=== PATIENT | male | born 1945 | race Caucasian/White ===

== ENCOUNTER 2019-08-03 05:13 | Day surgery (SDC) | payer OTHER, MEDICARE ==
[~2019-08-03] VITALS: Ht 182.9 cm; Wt 128.0 kg
[2019-08-03 05:32] LABS: BASOPHILS ABSOLUTE AUTO 0.04 K/mm3 (0.00-0.23); BASOPHILS PERCENT AUTO 0 % (0-2); EOSINOPHILS ABSOLUTE AUTO 0.21 K/mm3 (0.00-0.68); EOSINOPHILS PERCENT AUTO 2 % (0-6); Hematocrit 46.3 % (37.0-53.0); Hemoglobin 15.1 g/dL (13.5-17.5); IMMATURE GRAN ABSOLUTE AUTO 0.02 K/mm3 (0.00-0.10); IMMATURE GRAN PERCENT AUTO 0 % (0-1); LYMPHOCYTES ABSOLUTE AUTO 2.05 K/mm3 (0.84-5.20); LYMPHOCYTES PERCENT AUTO 22 % (21-46); MONOCYTES ABSOLUTE AUTO 0.94 K/mm3 (0.16-1.47); MONOCYTES PERCENT AUTO 10 % (4-13); Mean Corpuscular HGB 27.3 pg (26.0-34.0); Mean Corpuscular HGB Conc 32.6 g/dL (31.5-36.5); Mean Corpuscular Volume 84 fL (80-100); Mean Platelet Volume 9.9 fL (9.1-12.4); NEUTROPHILS ABSOLUTE AUTO 5.99 K/mm3 (1.96-9.15); NEUTROPHILS PERCENT AUTO 65 % (41-73); Platelet Count 235 K/mm3 (150-400); RDW Coefficient Variation 13.9 % (11.7-14.2); RDW Standard Deviation 42.5 fL (35.1-46.3); Red Blood Cell Count 5.54 M/mm3 (4.30-5.90); White Blood Cell Count 9.25 K/mm3 (4.00-11.30)
[2019-08-03 05:55] LABS: Albumin, Blood 3.2 g/dL (3.4-5.0); Albumin/Globulin Ratio 0.9 (0.8-1.8); Bilirubin, Total 0.4 mg/dL (0.1-1.0); Bun/Creatinine Ratio 15.9 (12.0-20.0); Calcium, Blood 8.9 mg/dL (8.5-10.1); Creatinine, Blood 1.95 mg/dL (0.60-1.20); Globulin, Blood 3.7 g/dL (2.2-4.0); Potassium, Blood 3.5 mmol/L (3.5-5.5); Total Protein, Blood 6.9 g/dL (6.4-8.2); Troponin I 0.241 ng/mL (0.000-0.040)
[2019-08-03] MEDS ORDERED: LEVSOD125 PO (07:04)
[2019-08-03] MEDS ORDERED: LOSA50 PO (07:04)
[2019-08-03] MEDS ORDERED: CHLO25B PO (07:04)
[2019-08-03] MEDS ORDERED: Zantac150 MG PO (07:05)
[2019-08-03] MEDS ORDERED: ATEN100 PO (07:05)
[2019-08-03] MEDS ORDERED: Prazosin HCl2 MG PO (07:05)
--- NOTE | 2019-08-03 12:31 | NUR ---
admit note PT REPORT RECEIVED FROM LENA RN, ER. PT ARRIVED TO PCU VIA GURNEY ACCOMPANIED BY RN. PT AWAKE AND ALERT. PT DENIES CHEST PAIN/PRESSURE UPON ARRIVAL. PT ABLE TO TRANSFER SELF WITH SBA. NO DIZZINESS OR WEAKNESS NOTED. TELE MONITOR EXPLAINED AND APPLIED TO CHEST. EKG PATCHES MARKED AND REMOVED FROM CHEST WALL. VSS. H/L. SR WITH FIRST APPLEE HB ON MONITOR. CARDIOLOGY CONSULT CALLED PRIOR TO ARRIVAL TO UNIT. CONTINUE POT.
[2019-08-03 14:01] LABS: Source, Urine Voided
[2019-08-03 14:05] LABS: Bilirubin, Urine Neg (Neg); Blood, Urine 2+ (Neg); Glucose Qualitative, Urine Neg (Neg); Ketones, Urine Neg (Neg); Leukocyte Esterase, Urine Neg (Neg); Nitrite, Urine Neg (Neg); Protein, Urine 1+ (Neg); Specific Gravity, Urine 1.025 (1.003-1.022); Urobilinogen, Urine NORM (Normal)
[2019-08-03 14:27] LABS: Appearance, Urine Hazy (Clear); Color, Urine Yellow (P-Yellow)
[2019-08-03 14:29] LABS: Bacteria Few /hpf; Red Blood Cells, Urine 0-2 /hpf (0-2); Squamous Epithelial Cells Few /hpf (Few); Uric Acid Crystals Many /hpf; White Blood Cells, Urine 0-2 /hpf (0-5)
[2019-08-03 15:13] LABS: International Normalized Ratio 1.17; Prothrombin Time Results 12.2 Sec (9.7-11.5)
--- NOTE | 2019-08-03 15:26 | NUR ---
Echocardiogram completed.
--- NOTE | 2019-08-03 17:08 | NUR ---
NOTE PT AWAKE AND ALERT. FOUND UNDRESSING AND TAKING THE TELE MONITOR APART. REORIENTED TO WHERE HE IS AND WHY HE IS HERE. VSS. NO BP RIGHT UE, PER BATTERY INSPECTOR, DUE TO A SUBCLAVIAN STENOSIS. SR WITH FIRST DEGREE HB. VSS. DENIED CHEST PAIN OR CHEST PRESSURE. H/L. RA. CONTINUE POT.
--- NOTE | 2019-08-03 17:59 | NUR ---
[place] [facility] FAXED OVER PT CURRENT MEDICATIONS LIST. IT WOULD APPEAR THAT PT HAS NOT FILLED HIS ROUTINE MEDICAITONS FOR SEVERAL MONTHS. CONTINUE POT.
--- NOTE | 2019-08-03 20:31 | NUR ---
PATIENT REPORTS BLOOD IN URINE NOT WITNESSED. STATES THAT HE HAD A UTI ONE MONTH AGO AND HAD BOOD IN URINE AT THAT TIME.
[2019-08-04 02:49] LABS: Source, Urine Clean Catch
[2019-08-04 02:51] LABS: Appearance, Urine Hazy (Clear); Bilirubin, Urine Neg (Neg); Blood, Urine 2+ (Neg); Color, Urine Yellow (P-Yellow); Glucose Qualitative, Urine Neg (Neg); Ketones, Urine Neg (Neg); Leukocyte Esterase, Urine Neg (Neg); Nitrite, Urine Neg (Neg); Protein, Urine 1+ (Neg); Urobilinogen, Urine NORM (Normal)
[2019-08-04 02:59] LABS: Red Blood Cells, Urine 0-2 /hpf (0-2); White Blood Cells, Urine 0-2 /hpf (0-5)
[2019-08-04 03:00] LABS: Bacteria Many /hpf; Squamous Epithelial Cells Not Seen /hpf (Few)
[2019-08-04 04:04] LABS: Hematocrit 44.7 % (37.0-53.0); Hemoglobin 14.5 g/dL (13.5-17.5); Mean Corpuscular HGB 27.4 pg (26.0-34.0); Mean Corpuscular HGB Conc 32.4 g/dL (31.5-36.5); Mean Corpuscular Volume 84 fL (80-100); Platelet Count 195 K/mm3 (150-400); RDW Coefficient Variation 13.9 % (11.7-14.2); RDW Standard Deviation 43.2 fL (35.1-46.3); White Blood Cell Count 7.97 K/mm3 (4.00-11.30)
[2019-08-04 04:27] LABS: Bun/Creatinine Ratio 17.6 (12.0-20.0); Calcium, Blood 8.6 mg/dL (8.5-10.1); Creatinine, Blood 1.48 mg/dL (0.60-1.20); Potassium, Blood 3.4 mmol/L (3.5-5.5)
[2019-08-04 04:35] LABS: Thyroid Stimulating Hormone 4.5 uIU/mL (0.360-4.800)
--- NOTE | 2019-08-04 05:47 | NUR ---
PATIENT HAS HIS DAUGHTER ANSWER A LOT OF QUESTIONS FOR HIM, STATING HE IS NOT SURE. PATIENT ABLE TO ANSWER ORIENTATION QUESTIONS, BUT BECOMES CONFUSED EASILY. PATIENT DENIES ANY PAIN. PATIENT SLEEPS HEAVILY AND STARTLES EASILY. DAUGHTER STATES HE HAS NIGHTTERRORS AND HAS BEEN VIOLENT IN THE PAST. PATIENT APPROPRIATE THROUGH THE NIGHT. PATIENT SHOWS NO SIGNS OF PAIN. SBP CONTINUES TO BE ELEVATED 160-170'S. PATIENT NPO AT MIDNIGHT.
--- NOTE | 2019-08-04 15:00 | NUR ---
PT TAKEN TO LENS POLISHER HAND FOR ANGIOGRAM. WILL AWAIT RETURN.
--- NOTE | 2019-08-04 16:16 | NUR ---
PT RETURNED FROM FREELANCE MAKEUP ARTIST. VS STABLE. PT AELRT AND ORIENTED. RIGHT RADIAL SITE HAS TR BAND IN PLACE WITH 12CC OF AIR. NO SIGNS OF BLEEDIG OR HEMATOMA NOTED. PT EDUCATED ON RIGHT ARM RESTRICTIONS. WILL CONTINUE TO MONITOR CLOSELY.
--- NOTE | 2019-08-04 18:40 | NUR ---
SHIFT SUMMARY PT ALERT AND ORIENTED. BP ELEVATED SINCE RETURN FROM MUSIC WORKER. ONE TIME DOSE OF NORVASC GIVEN. DR. NATHAN IN THIS EVENING WITH NEW ORDERS FOR MEDICATION TO TREAT BP. RIGHT RADIAL SITE FREE FROM ANY BLEEDING OR HEMATOMA NOTED. PT'S DAUGHTER CALLED AND UPDATED. WILL CONTINUE TO MONITOR AND REPORT TO ONCOMING RN. CALL LIGHT IN REACH.
--- NOTE | 2019-08-04 21:23 | NUR ---
CALLED DR. MONROE ABOUT ELEVATED BP AND NOTIFIED HIM PATIENT HAD ANGIO AND STILL HAS TR BAND ON. DOCTOR ORDERED FOR IV LABATELOL 10MG Q6H PRN FOR BP> 180/110. NO FURTHER ORDERS.
--- NOTE | 2019-08-04 23:01 | NUR ---
PATIENT FELT URGE TO URINATE BUT UNABLE, BLADDER SCANNED FOR 320. PATIENT WAS ABLE TO URINATE AT THE BEGINNING OF SHIFT. CALLED DR. MONROE WHO ORDERED TO SCAN IN 2HR IF STILL UNABLE TO VOID IF URINE IS GREATER THAN 500CC STRAIGHT CATH X1. NO FURTHER ORDERS AT THIS TIME.
--- NOTE | 2019-08-05 05:51 | NUR ---
PATIENT HAS BEEN SLEEPING IN BETWEEN CARE. PATIENT STARTLES EASILY. PATIENT DENIES ANY PAIN THROUGH NIGHT. SBP NOW 159.
--- NOTE | 2019-08-05 05:54 | NUR ---
CALLED DR. PERALTA TO CLARIFY LABATELOL ORDER PARAMETERS OF 180/110 DUE TO PATIENT CURRENT SBP OF 194. DOCTOR CHANGED PARAMETERS FOR SBP>160.
[2019-08-05 09:01] LABS: Anion Gap 4 mmol/L (6-16); Blood Urea Nitrogen 17 mg/dL (8-24); Bun/Creatinine Ratio 13.9 (12.0-20.0); CO2, Blood 27 mmol/L (21-32); Calcium, Blood 8.5 mg/dL (8.5-10.1); Chloride, Blood 107 mmol/L (98-108); Creatinine, Blood 1.22 mg/dL (0.60-1.20); Glomerular Filtration Rate >60 (60-); Glucose, Blood 138 mg/dL (70-99); Potassium, Blood 3.8 mmol/L (3.5-5.5); Sodium, Blood 138 mmol/L (136-145)
--- NOTE | 2019-08-05 13:58 | NUR ---
CALLED TO CLARIFY DISCHARGE PLANS WITH CINTHYA ALLAN TO DISCHARGE FROM CARDIOLOGY STAND POINT, WITH FOLLOW UP IN OFFICE TO BE REFFERED FOR FURTHER TREATMENT. NOTIFIED DR SHAH. WILL CONTINUE TO MONITOR.
[2019-08-05] MEDS ORDERED: ASPI81CH PO (15:16)
[2019-08-05] MEDS ORDERED: Norvasc10 MG PO (15:16)
[2019-08-05] MEDS ORDERED: ATOR40TA PO (15:18)
[2019-08-05] MEDS ORDERED: CARV25 PO (15:20)
--- NOTE | 2019-08-05 16:07 | NUR ---
DISCHARGE SUMMARY PT A&Ox3, FORGETFUL AT TIMES. PT RESTING IN BED DURING SHIFT, UP TO CHAIR FOR MEALS AND BATHROOM WITH SBA WITH CANE. PT DENIES CHEST PAIN, NUMB/TING, DIZZINESS, SOB, PAIN AND NAUSEA T/O SHIFT. PT DENIES CHEST PAIN/PRESSURE AFTER AMBULATION WITH PT. SPO2 >92% ON RA. RIGHT RADIAL SITE CONTINES TO SHOW NO S/SX OF BLEEDING, BRUISING OR SWELLING. PT ENCOURAGED AND EDUCATED NO TO USE RIGHT ARM. ELEVATED BP THIS AM, TRENDING DOWN AFTER SCHEDULED MEDICATIONS. OTHER VSS. TELE SR WITH 1ST DEGREE AV BLOCK. EDUCATED PT AND DAUGHTER ON DISCHARGE INSTRUCTIONS, MEDICATIONS, FOLLOW UP APPOINTMENTS, AND REFERRAL FOR CARDIOTHORACTIC SURGEON. MEDICATIONS FAXED TO [facility] IN [facility] PER PT REQUEST. DAUGHTER PLANS TO CALL ON WEDNESDAY FOR FOLLOW UP APPOINTMENTS. PT LEFT ROOM VIA WHEELCHAIR AT 1600.
== END 2019-08-05 16:00 | disposition home or self-care (01) ==
LOC: ER 05:13 → ERHOLD 09:07 → PCU 09:07 → ERHOLD 12:10 → ORSCMMR 12:13 → MHTC 12:13 → ORSCMMR 12:14 → PCU 08-05 16:00 → ORSCMMR 08-05 16:00
PROVIDERS: Emergency Medicine; Internal Medicine; Internal Medicine Cardiovascular Disease
PROC: 4A023N7 Measurement of Cardiac Sampling and Pressure, Left Heart, Percutaneous Approach (ICD-10-PCS; principal; 2019-08-04)
PROC: B2111ZZ Fluoroscopy of Multiple Coronary Arteries using Low Osmolar Contrast (ICD-10-PCS; principal; 2019-08-04)
DX: I21.4 Non-ST elevation (NSTEMI) myocardial infarction (principal); I10 Essential (primary) hypertension; J44.9 Chronic obstructive pulmonary disease, unspecified; E03.9 Hypothyroidism, unspecified; E66.9 Obesity, unspecified; G47.33 Obstructive sleep apnea (adult) (pediatric); I34.0 Nonrheumatic mitral (valve) insufficiency; I25.10 Atherosclerotic heart disease of native coronary artery without angina pectoris; G31.84 Mild cognitive impairment of uncertain or unknown etiology; N17.9 Acute kidney failure, unspecified; I48.0 Paroxysmal atrial fibrillation; Z68.38 Body mass index [BMI] 38.0-38.9, adult; Z79.899 Other long term (current) drug therapy; Z74.09 Other reduced mobility; Z87.891 Personal history of nicotine dependence
CPT/HCPCS: 36415; 36416; 71045; 80048; 80053; 81001; 84443; 84484; 85025; 85027; 85610; 85730; 87086; 93005; 93010; 93306; 93454; 96374; 97116; 97162; 99152; 99153; 99285-25; C1769; C1887; C1894; J1644; J2250; J3010; J3480; J7030; Q9967

== ENCOUNTER 2020-03-21 10:37 | Emergency (ER) | payer OTHER ==
[~2020-03-21] VITALS: Ht 182.9 cm; Wt 127.0 kg
[~2020-03-21 10:37] MED LIST: ASPI81CH PO; ATEN100 PO; ATOR40TA PO; CARV25 PO; CHLO25B PO; LEVSOD125 PO; LOSA50 PO; Norvasc10 MG PO; Prazosin HCl2 MG PO; Zantac150 MG PO
[2020-03-21] MEDS ORDERED: Norco 5-325 Ta1 EACH PO (12:43)
[2020-03-21] MEDS ORDERED: CYCL10 PO (12:43)
== END 2020-03-21 13:06 | disposition home or self-care (01) ==
LOC: ER 10:37
DX: M54.42 Lumbago with sciatica, left side (principal); I12.9 Hypertensive chronic kidney disease with stage 1 through stage 4 chronic kidney disease, or unspecified chronic kidney disease; N18.9 Chronic kidney disease, unspecified; J44.9 Chronic obstructive pulmonary disease, unspecified; E03.9 Hypothyroidism, unspecified; Z88.1 Allergy status to other antibiotic agents; Z88.8 Allergy status to other drugs, medicaments and biological substances; Z79.899 Other long term (current) drug therapy; Z79.82 Long term (current) use of aspirin
CPT/HCPCS: 72100; 99283-25; A9270-GY

== ENCOUNTER 2023-08-02 17:36 | Inpatient (IN) | payer MEDICARE, OTHER ==
[~2023-08-02] VITALS: Ht 188 cm; Wt 124.0 kg
[~2023-08-02 17:36] MED LIST changes: +ALBU90OI INH; +CYCL10 PO; +Norco 5-325 Ta1 EACH PO
[2023-08-02 19:41] LABS: BASOPHILS ABSOLUTE AUTO 0.02 K/mm3 (0.00-0.23); BASOPHILS PERCENT AUTO 0 % (0-2); EOSINOPHILS PERCENT AUTO 0 % (0-6); Hematocrit 46.1 % (37.0-53.0); Hemoglobin 15.2 g/dL (13.5-17.5); IMMATURE GRAN ABSOLUTE AUTO 0.01 K/mm3 (0.00-0.10); IMMATURE GRAN PERCENT AUTO 0 % (0-1); LYMPHOCYTES ABSOLUTE AUTO 0.84 K/mm3 (0.84-5.20); LYMPHOCYTES PERCENT AUTO 12 % (21-46); MONOCYTES ABSOLUTE AUTO 0.91 K/mm3 (0.16-1.47); MONOCYTES PERCENT AUTO 13 % (4-13); Mean Corpuscular Volume 82 fL (80-100); Mean Platelet Volume 9.9 fL (9.1-12.4); NEUTROPHILS ABSOLUTE AUTO 5.31 K/mm3 (1.96-9.15); NEUTROPHILS PERCENT AUTO 75 % (41-73); Platelet Count 146 K/mm3 (150-400); RDW Coefficient Variation 14.7 % (11.7-14.2); RDW Standard Deviation 43.6 fL (35.1-46.3); Red Blood Cell Count 5.64 M/mm3 (4.30-5.90); White Blood Cell Count 7.09 K/mm3 (4.00-11.30)
[2023-08-02 19:46] LABS: Source, Urine Straight Cath
[2023-08-02 19:51] LABS: Appearance, Urine Cloudy (Clear); Bilirubin, Urine Neg (Neg); Blood, Urine 5+ (Neg); Color, Urine Yellow (P-Yellow); Glucose Qualitative, Urine Neg (Neg); Ketones, Urine 2+ (Neg); Leukocyte Esterase, Urine Neg (Neg); Nitrite, Urine Neg (Neg); Protein, Urine 3+ (Neg); Specific Gravity, Urine 1.025 (1.003-1.022); Urobilinogen, Urine NORM (Normal)
[2023-08-02 20:03] LABS: Albumin, Blood 3.4 g/dL (3.4-5.0); Albumin/Globulin Ratio 0.8 (0.8-1.8); Bilirubin, Total 0.8 mg/dL (0.1-1.0); Bun/Creatinine Ratio 14.2 (12.0-20.0); Calcium, Blood 8.8 mg/dL (8.5-10.1); Creatinine, Blood 1.2 mg/dL (0.60-1.20); Magnesium, Blood 2.3 mg/dL (1.6-2.4); Potassium, Blood 5.1 mmol/L (3.5-5.5); Total Protein, Blood 7.4 g/dL (6.4-8.2)
[2023-08-02 20:16] LABS: Amorphous Mod (0-Heavy); Bacteria Few /hpf; Red Blood Cells, Urine 0-2 /hpf (0-2); Squamous Epithelial Cells Not Seen /hpf (Few); White Blood Cells, Urine 0-2 /hpf (0-5)
[2023-08-02 20:30] LABS: Influenza A, PCR NEGATIVE (NEGATIVE); Influenza B, PCR NEGATIVE (NEGATIVE); Resp Syncytial Virus, PCR NEGATIVE (NEGATIVE)
[2023-08-02 20:32] LABS: SARS-Cov-2 (COVID-19) PCR, MMC POSITIVE (NEGATIVE)
[2023-08-02 20:41] LABS: International Normalized Ratio 1.17; Prothrombin Time Results 12.2 Sec (9.7-11.5)
[2023-08-02 23:27] LABS: Base Excess Venous 1.4 mmol/L; Bicarbonate Venous 24.7 mmol/L (24.0-30.0); PCO2 Venous 53.7 mmHg (38-42); pH Blood Venous 7.32 (7.34-7.37)
[2023-08-03 06:26] LABS: Base Excess Venous 1.8 mmol/L; Bicarbonate Venous 24.9 mmol/L (24.0-30.0); PCO2 Venous 54.7 mmHg (38-42); pH Blood Venous 7.32 (7.34-7.37)
[2023-08-03 06:31] LABS: BASOPHILS ABSOLUTE AUTO 0.01 K/mm3 (0.00-0.23); BASOPHILS PERCENT AUTO 0 % (0-2); EOSINOPHILS PERCENT AUTO 0 % (0-6); Hematocrit 43.7 % (37.0-53.0); Hemoglobin 14.4 g/dL (13.5-17.5); IMMATURE GRAN ABSOLUTE AUTO 0.01 K/mm3 (0.00-0.10); IMMATURE GRAN PERCENT AUTO 0 % (0-1); LYMPHOCYTES PERCENT AUTO 12 % (21-46); MONOCYTES ABSOLUTE AUTO 0.17 K/mm3 (0.16-1.47); MONOCYTES PERCENT AUTO 4 % (4-13); Mean Corpuscular HGB 26.9 pg (26.0-34.0); Mean Corpuscular Volume 82 fL (80-100); Mean Platelet Volume 10.2 fL (9.1-12.4); NEUTROPHILS ABSOLUTE AUTO 4.11 K/mm3 (1.96-9.15); NEUTROPHILS PERCENT AUTO 84 % (41-73); Platelet Count 134 K/mm3 (150-400); RDW Coefficient Variation 14.7 % (11.7-14.2); RDW Standard Deviation 43.1 fL (35.1-46.3); Red Blood Cell Count 5.36 M/mm3 (4.30-5.90)
[2023-08-03 06:47] LABS: Albumin, Blood 2.9 g/dL (3.4-5.0); Albumin/Globulin Ratio 0.8 (0.8-1.8); Bilirubin, Total 0.4 mg/dL (0.1-1.0); Bun/Creatinine Ratio 15.4 (12.0-20.0); Calcium, Blood 8.2 mg/dL (8.5-10.1); Creatinine, Blood 1.17 mg/dL (0.60-1.20); Globulin, Blood 3.6 g/dL (2.2-4.0); Potassium, Blood 3.7 mmol/L (3.5-5.5); Total Protein, Blood 6.5 g/dL (6.4-8.2)
[2023-08-03 10:56] VITALS: BP 185/84
[2023-08-03 14:36] VITALS: BP 163/93
[2023-08-03] MEDS ORDERED: TAMS.4ER PO (16:06)
[2023-08-03] MEDS ORDERED: FINA5 PO (16:07)
[2023-08-03] MEDS ORDERED: HYDROCHLOROTH12.5 MG PO (16:08)
[2023-08-03 17:02] VITALS: BP 150/93
--- NOTE | 2023-08-03 17:29 | NUR ---
Met with patient and his daughter. Assessment of the patient. Asked him about his career. Took him quite ahwile to tell me what he did. Did symptom assessment. He denies headaches, he fees slighty short of breath no nausea. He has face is puffy and legs firm and some dpendent edema noted on torso. He struggles to track converstion and some erratic eye movements. Daughter presents increasing decline in function and memeory and able to track. He is needing dupport in his ADL's. She states he is getting more aggitated because he cant recall things or track conversation. Daughter states he has lived alone for some time and has some social anexiety. She states with [facility] frequent medication adjustments he has had urinary retention and then when diuretics increased. uninary incontinence and more confussionand unbalanced. Daughter is looking to see if he qualifies for memory care. From this writers encounter need Ot eval apprears to be cognative decline. Daughter states more outbursts, she states his relationship with his ten year old grandchild has changed.She is showing great caregiver stress. We had a long conversation about his care needs. She is very organized and engaged. She brought his advance directive. We dsicusssed his code status. According to his directive he would not want cpr or life support. Will update laboratory animal caretaker he has medicaid and after this event may be more bedridden. Will follow up and suport for daughter and domi brown.
--- NOTE | 2023-08-03 17:33 | NUR ---
SHIFT SUMMARY: PT IS A 77 YEAR OLD MALE HERE AFTER A STAY IN THE ED. AFTER HE SUSTAINED MULTIPLE GROUND LEVEL FALLS AT HOME AND BROUGHT IN BY EMS. HE HAS A HISTORY OF DEMENTIA AND FAMILY; WHO HE LIVES WITH STATES THAT HE WAS SHOWING INCREASED ALTERED MENTAL STATUS. A&O X3. POOR HISTORIAN. STRUGGLES TO FORMULATE WORDS/SENTENCES/THOUGHTS. HE TESTED POSTITVE FOR COVID 19 AND IS RECEIVING TREATMENT. HE IS ON ROOMAIR AND SUSTAINING OXYGEN GREATER THAN 90%. HE HAS REMAINED IN BED DUE TO WEAKNESS. PALLATIVE CARE VISITED WITH PATIENT AND HIS DAUGHTER MADALYN. PT IS IN BED, CALL LIGHT WITHIN REACH, AND NO SIGNS OF SYMPTOMS OF DISTRESS. PLAN OF CARE ONGOING.
[2023-08-03 19:48] VITALS: BP 134/99
[2023-08-04 04:16] VITALS: BP 163/87
--- NOTE | 2023-08-04 04:48 | NUR ---
SHIFT SUMMARY PATIENT IS ALERT BUT NOT ORIENTED. PATIENT REMAINS CONFUSED. PATIENT HAS HAD NO ACUTE EVENTS THIS SHIFT. VITAL SIGNS REVIEWED. PATIENT HAS NOT COMPLAINED OF PAIN, NAUSEA, OR VOMITTING THIS SHIFT. PATIENT REMAINS ON ROOM AIR AND O2 SATURATION REMAINS ABOVE 92 PERCENT. PATIENT HAS BEEN INCONTINENT AND HAS NOT BEEN IMPULSIVE THIS SHIFT. BED ALARM IS ON FOR SAFETY. BED IN LOCKED AND LOWEST POSITION. CALL LIGHT IN PLACE. WILL MONITOR UNTIL SHIFT CHANGE.
[2023-08-04 07:25] VITALS: BP 183/98
[2023-08-04 10:00] VITALS: BP 135/70
[2023-08-04 11:16] LABS: Base Excess Venous 1.2 mmol/L; Bicarbonate Venous 25.4 mmol/L (24.0-30.0); PCO2 Venous 40.2 mmHg (38-42); pH Blood Venous 7.41 (7.34-7.37)
[2023-08-04 16:07] VITALS: BP 169/96
--- NOTE | 2023-08-04 18:18 | NUR ---
PT IS ALERT, ORIENTED TO SELF AND FAMILY. MOSTLY CONFUSED EASILY REDIRECTED, CALM AND COOPERATIVE AT THIS TIME. VIRTUAL MONITOR SET UP IN HIS ROOM DUE TO HIGH FALL RISK AND THE CONFUSION. THE PT IS BREATHING EASILY ON RA AT THIS TIME. CONTINUOS BIOX ON SAT'S > 95 %. THE MAKES COMMENTS ABOUT HOW CONFUSED HE IS FREQUANTLY. THE PTS DAUGHTER WAS IN TO VISIT THIS AFTERNOO. CALL LIGHT IN REACH, BED IN THE LOW POSITION , BED ALARM ON
[2023-08-04 19:44] VITALS: BP 170/86
[2023-08-05 03:28] VITALS: BP 153/95
--- NOTE | 2023-08-05 04:37 | NUR ---
shift summary. shift has been mostly unremarkable up until about an hour ago. on shift assessment last night, pt was aox3, pleasant, cooperative with care. after that point slept through most of shift. about an hour ago, pt awoke with morning vitals and was somewhat agitated. when changed by CNAs, pt was swinging wildly and becoming increasingly agitated. after this, pt was frequently attempting oob and was increasingly difficult to redirect. called hospitalist dr. grijalav who ordered prn zyprexa 10mg, limit 4 doses. administered and it now seems to be taking effect as he is now relaxing in bed. at 0440 call from [employer] that pt has been having increasing PVCs on tele monitor starting at 1630 yesterday afternoon with 8 PVCs per minute increasing and then peaking at 0200 this morning when every other beat was a PVC. at this time, pt is running at about 2-3 PVCs per minute. discussed with communications agentCHARAN Ibarra who advised that there is no need for further action regarding this at this time. pt is now resting comfortably in bed after zyprexa administration. remote monitoring camera remains in place. bed locked in lowest position call light left within reach.
[2023-08-05 06:34] LABS: BASOPHILS ABSOLUTE AUTO 0.01 K/mm3 (0.00-0.23); BASOPHILS PERCENT AUTO 0 % (0-2); EOSINOPHILS PERCENT AUTO 0 % (0-6); Hematocrit 43.2 % (37.0-53.0); Hemoglobin 14.2 g/dL (13.5-17.5); IMMATURE GRAN ABSOLUTE AUTO 0.02 K/mm3 (0.00-0.10); IMMATURE GRAN PERCENT AUTO 0 % (0-1); LYMPHOCYTES ABSOLUTE AUTO 0.91 K/mm3 (0.84-5.20); LYMPHOCYTES PERCENT AUTO 14 % (21-46); MONOCYTES ABSOLUTE AUTO 0.52 K/mm3 (0.16-1.47); MONOCYTES PERCENT AUTO 8 % (4-13); Mean Corpuscular HGB 26.8 pg (26.0-34.0); Mean Corpuscular HGB Conc 32.9 g/dL (31.5-36.5); Mean Corpuscular Volume 82 fL (80-100); Mean Platelet Volume 10.1 fL (9.1-12.4); NEUTROPHILS ABSOLUTE AUTO 4.97 K/mm3 (1.96-9.15); NEUTROPHILS PERCENT AUTO 77 % (41-73); Platelet Count 171 K/mm3 (150-400); RDW Coefficient Variation 14.6 % (11.7-14.2); RDW Standard Deviation 43.7 fL (35.1-46.3); Red Blood Cell Count 5.29 M/mm3 (4.30-5.90); White Blood Cell Count 6.43 K/mm3 (4.00-11.30)
[2023-08-05 07:02] LABS: Albumin, Blood 2.8 g/dL (3.4-5.0); Anion Gap 3 mmol/L (6-16); Blood Urea Nitrogen 25 mg/dL (8-24); Bun/Creatinine Ratio 21.4 (12.0-20.0); CO2, Blood 27 mmol/L (21-32); Calcium, Blood 8.4 mg/dL (8.5-10.1); Chloride, Blood 109 mmol/L (98-108); Creatinine, Blood 1.17 mg/dL (0.60-1.20); Glomerular Filtration Rate 63 (60-); Glucose, Blood 122 mg/dL (70-99); Phosphorus, Blood 2.8 mg/dL (2.5-4.9); Potassium, Blood 3.8 mmol/L (3.5-5.5); Sodium, Blood 139 mmol/L (136-145)
[2023-08-05 07:59] VITALS: BP 185/97
--- NOTE | 2023-08-05 10:13 | NUR ---
OT sylwia ordered for cognitive evaluation.
--- NOTE | 2023-08-05 11:32 | NUR ---
DR. VARGHESE NOTIFIED THAT COREG WAS HELD FOR HR <60.
[2023-08-05 14:57] VITALS: BP 140/95
--- NOTE | 2023-08-05 16:42 | NUR ---
VIRTUAL DYE OPERATOR CALLED R/T TO CONCERNS REGARDING LACK OF NOTIFICATION WHEN PT IS GETTING OOB OR CHAIR UNASSISTED. PT HAS STOOD UP MULTIPLE TIMES TODAY, HE HAS REMOVED HIS ATTENDS AND THREW IT ACCROSS THE ROOM. CHAIR ALARM AND BED ALARM ARE ALERTING PRIOR TO VIRTUAL DYE OPERATOR WHICH HAS NOT ALERTED REGARDING CONCERNING PT BEHAVIOR. VIRTUAL DYE OPERATOR WAS NOTIFIED THAT PT SUNDOWNS AND WILL LIKELY BECOME MORE ACTIVE THIS EVENING AND T/O THE NIGHT. SHE WAS ASKED TO PLEASE WATCH FOR PT PULLING AT IV LINES OR GETTING OOB OR CHAIR W/O ASSISTANCE.
--- NOTE | 2023-08-05 18:20 | NUR ---
SHIFT SUMMARY PT HAS BEEN CONFUSED AND HALLUCINATING T/O THE DAY. BED ALARM, CHAIR ALARM AND VIRTUAL JACK PRIZER USED T/O THE DAY FOR SAFETY SINCE PT PULLS AT LINES AND ATTEMPTS TO GET OOB. PT HAS DENIED PAIN T/O THE DAY. PT REMAINS ON RA. PT HAS BEEN ALERT, PLEASANT AND REDIRECTABLE T/O THE DAY. FAMILY VISITED AND PROVIDED SUPPORT. PT RESTING IN CHAIR, CALL LIGHT WITHIN REACH.
[2023-08-05 19:57] VITALS: BP 148/97
--- NOTE | 2023-08-06 04:00 | NUR ---
LIANE ESTRADA, PT AT THSI TIME APPERAS TO BE ASLEEP. EARLIER PT HAVING CAMMERA AND BED ALARM GOING OFF CONSTANTLY. PT GIVENNIGHT MEDS WITH SERAQUEL AND PAIN MED. LIGHTS TURNED DOWN THE CARE MARCUS PUT ON PT APPERED TO BE SETTLEING DOWN FOR A FEW MIN HTEN PULLING OFF TELLE TRING TO PULLOUT IVS AND TRYING TO GET UP. PT VERY WEAK 2 PERSON ASSIST BACK TO BED FROM CHAIR. PT GIVEN ZYPXERA IM PT NOT GOING TO SLEEP NOT STOPPING TRING TO GET OUT OF BED AND NOT STOPPING TRYING TO PULL OUT IVS. PT SLEEPT FOR ABOUT 1-2 HRS THEN WOKE AND STARTED THE SAME ACTIVITIES AGAIN FOR SOME TIME. BUT FOR LAST 3 HRS SEEMS TO BE ASLEEP. CAMERA OBSERVING, BED ALRM ON , CALL LIGHT IN REACH.
[2023-08-06 06:36] LABS: BASOPHILS PERCENT AUTO 0 % (0-2); EOSINOPHILS PERCENT AUTO 0 % (0-6); Hematocrit 45.7 % (37.0-53.0); Hemoglobin 15.1 g/dL (13.5-17.5); IMMATURE GRAN ABSOLUTE AUTO 0.03 K/mm3 (0.00-0.10); IMMATURE GRAN PERCENT AUTO 1 % (0-1); LYMPHOCYTES ABSOLUTE AUTO 1.24 K/mm3 (0.84-5.20); LYMPHOCYTES PERCENT AUTO 19 % (21-46); MONOCYTES ABSOLUTE AUTO 0.69 K/mm3 (0.16-1.47); MONOCYTES PERCENT AUTO 10 % (4-13); Mean Corpuscular HGB 26.7 pg (26.0-34.0); Mean Corpuscular Volume 81 fL (80-100); Mean Platelet Volume 10.3 fL (9.1-12.4); NEUTROPHILS PERCENT AUTO 71 % (41-73); Platelet Count 174 K/mm3 (150-400); RDW Coefficient Variation 14.6 % (11.7-14.2); RDW Standard Deviation 42.8 fL (35.1-46.3); Red Blood Cell Count 5.66 M/mm3 (4.30-5.90); White Blood Cell Count 6.66 K/mm3 (4.00-11.30)
[2023-08-06 06:52] LABS: Albumin, Blood 2.8 g/dL (3.4-5.0); Anion Gap 4 mmol/L (6-16); Blood Urea Nitrogen 24 mg/dL (8-24); Bun/Creatinine Ratio 16.8 (12.0-20.0); CO2, Blood 28 mmol/L (21-32); Calcium, Blood 8.3 mg/dL (8.5-10.1); Chloride, Blood 109 mmol/L (98-108); Creatinine, Blood 1.43 mg/dL (0.60-1.20); Glomerular Filtration Rate 50 (60-); Glucose, Blood 122 mg/dL (70-99); Phosphorus, Blood 3.5 mg/dL (2.5-4.9); Potassium, Blood 3.7 mmol/L (3.5-5.5); Sodium, Blood 141 mmol/L (136-145)
[2023-08-06 10:17] VITALS: BP 180/112
--- NOTE | 2023-08-06 19:07 | NUR ---
SHIFT SUMMARY NO ACUTE CHANGES THIS SHIFT. VSS. PT COOPERATIVE WITH ALL CARE THIS SHIFT. PARTICIPATED WITH therapies today. IS INCONT OF URINE. UP TO BSC WITH OT TODAY FOR BM. PT REMAINS CONFUSED, ORIENTED TO SELF & FAMILY ONLY. PLAN IS DC TO SNF PLACEMENT WITH HOSPICE UPON DC FROM HOSPITAL.
--- NOTE | 2023-08-07 02:05 | NUR ---
PT REFUSED TO GET HIS VITALS TAKEN BY THE BROKE WORKER. CURRENTLY ON TELEMETRY: BBB @77. WILL ATTEMPT VITALS AGAIN BEFORE END OF SHIFT
[2023-08-07 03:16] VITALS: BP 164/102
--- NOTE | 2023-08-07 04:18 | NUR ---
SHIFT SUMMARY PT A&O TO SELF ONLY, EASILY REDIRECTABLE BUT REFUSED PM VITALS AND KEPT PULLING EVERYTHING OFF. PT IS INCONTINENT OR URINE WITH ATTENDS IN PLACE. TELEMETRY: SR BBB @77. PT DENIES ANY CP OR PRESSURE. PT IS ON ROOM AIR, NO SOB, OCCASIONAL COUGH. PLAN IS FOR PT TO GO TO SNF/[facility] WITH HOSPICE. CAMERA OBSERVING, BED ALARM SET, AND BED IN LOWEST POSITION WITH CALL LIGHT WITHIN REACH. CONTINUE TO MONITOR UNTIL END OF SHIFT.
[2023-08-07 07:31] VITALS: BP 168/103
[2023-08-07 11:11] VITALS: BP 160/94
[2023-08-07 14:53] VITALS: BP 154/95
--- NOTE | 2023-08-07 18:59 | NUR ---
SUMMARY- PT AAOX1-2 THIS SHIFT. X1-2 TO THE BATHROOM W/ GAIT BELT AND WALKER. PT'S BED ALARM WENT OFF SEVERAL TIMES THIS SHIFT FOR CONFUSION. PT MOVED TO ROOM 352 FOR CLOSER MONITORING.
[2023-08-07 20:08] VITALS: BP 176/105
[2023-08-07 23:51] VITALS: BP 157/95
[2023-08-08 04:23] VITALS: BP 153/97
[2023-08-08 04:52] LABS: BASOPHILS ABSOLUTE AUTO 0.02 K/mm3 (0.00-0.23); BASOPHILS PERCENT AUTO 0 % (0-2); EOSINOPHILS PERCENT AUTO 0 % (0-6); Hematocrit 48.2 % (37.0-53.0); Hemoglobin 15.9 g/dL (13.5-17.5); IMMATURE GRAN ABSOLUTE AUTO 0.05 K/mm3 (0.00-0.10); IMMATURE GRAN PERCENT AUTO 1 % (0-1); LYMPHOCYTES ABSOLUTE AUTO 1.11 K/mm3 (0.84-5.20); LYMPHOCYTES PERCENT AUTO 10 % (21-46); MONOCYTES ABSOLUTE AUTO 0.88 K/mm3 (0.16-1.47); MONOCYTES PERCENT AUTO 8 % (4-13); Mean Corpuscular HGB 27.2 pg (26.0-34.0); Mean Corpuscular Volume 82 fL (80-100); Mean Platelet Volume 10.7 fL (9.1-12.4); NEUTROPHILS ABSOLUTE AUTO 8.83 K/mm3 (1.96-9.15); NEUTROPHILS PERCENT AUTO 81 % (41-73); Platelet Count 161 K/mm3 (150-400); RDW Coefficient Variation 14.7 % (11.7-14.2); RDW Standard Deviation 44.6 fL (35.1-46.3); Red Blood Cell Count 5.85 M/mm3 (4.30-5.90); White Blood Cell Count 10.89 K/mm3 (4.00-11.30)
[2023-08-08 05:11] LABS: Albumin, Blood 2.8 g/dL (3.4-5.0); Anion Gap 6 mmol/L (6-16); Blood Urea Nitrogen 38 mg/dL (8-24); Bun/Creatinine Ratio 19.9 (12.0-20.0); CO2, Blood 25 mmol/L (21-32); Calcium, Blood 8.5 mg/dL (8.5-10.1); Chloride, Blood 110 mmol/L (98-108); Creatinine, Blood 1.91 mg/dL (0.60-1.20); Glomerular Filtration Rate 35 (60-); Glucose, Blood 121 mg/dL (70-99); Phosphorus, Blood 4.9 mg/dL (2.5-4.9); Potassium, Blood 4.1 mmol/L (3.5-5.5); Sodium, Blood 141 mmol/L (136-145)
[2023-08-08 07:51] VITALS: BP 137/91
--- NOTE | 2023-08-08 08:14 | NUR ---
DR. VARGHESE VERBAL CONSULT WHILE ROUNDING, PLAN IS TO DISCHARGE TO HOSPICE, WILL WAIT FOR CASE MANAGEMENT TO RETURN ON WEDNESDAY. DR. VARGHESE WITH ORDERS TO DECREASE PREDNISONE TO 40MG.
[2023-08-08 16:21] VITALS: BP 166/105
[2023-08-08 19:03] VITALS: BP 156/102
--- NOTE | 2023-08-08 19:45 | NUR ---
PT ON ISO FOR COVID. ROOM AIR. THIS SHIFT PT DENIED PAIN WHENEVER ASSESSED BY RN. IV ACCESS TO LEFT FOREARM. INCONTINENT IN ATTENDS. DEMENTIA AT BASELINE, ORIENTED TO SELF. HE IS PLEASANT WITH STAFF. BELLSTAND ATTENDANT REPORTED THAT PT WAS HALLUCINATING, BUT NO AGGITATION NOTED. GOOD APPETITE.
[2023-08-08 23:27] VITALS: BP 140/86
[2023-08-09 05:03] VITALS: BP 153/93
[2023-08-09 07:11] VITALS: BP 149/86
--- NOTE | 2023-08-09 07:25 | NUR ---
PLEASANTLY CONFUSED, REDIRECTABLE, DOES NOT USE CALL LIGHT APPROPRIATELY CONTINENT/INCONTINENT. HTN BUT VSS ON RA. NO ACUTE CHANGES NOTED. UNEVENTFUL NIGHT. FIRE SAFETY REVIEWED.
[2023-08-09 15:30] VITALS: BP 166/94
--- NOTE | 2023-08-09 16:49 | NUR ---
PT AOX3 AND COOPERATIVE OF CARE NO ACUTE CHANGES AT THIS TIME. PT WORKED WELL WITH OT AND PHYSICAL THERAPY. NO DISTRESS NOTED CALL LIGHT WITHIN REACH. WILL CONTINUE TO MONITOR.
[2023-08-09 20:50] VITALS: BP 140/104
[2023-08-10 03:03] VITALS: BP 138/93
--- NOTE | 2023-08-10 06:53 | NUR ---
PLEASANTLY CONFUSED, REDIRECTABLE, ABLE TO REPOSITION INDEPENDENTLY AND WITH VERBAL DIRECTION AT TIMES. INCONTINENT OF URINE, NO BM. VSS ON RA. SLEPT MUCH OF SHIFT. TOLERATES PILLS WITH THIN LIQUIDS. NO ACUTE CHANGES NOTED.
[2023-08-10 08:43] VITALS: BP 153/90
[2023-08-10 14:03] VITALS: BP 109/86
--- NOTE | 2023-08-10 17:23 | NUR ---
PT HAS BEEN AOX3 AND HALLUCINATING TODAY. PT HAS BEEN UP TO CHAIR AND TAKING A LOT OF NAPS. PT IS A BIT IMPULSIVE TODAY SETTING OFF CHAIR ALARM MULTIPLE TIMES. AVASURE IS IN PLACE WELL CHAIR AND BED ALARM. WILL CONTINUE TO MONITOR.
[2023-08-10 20:46] VITALS: BP 145/91
[2023-08-11 01:52] VITALS: BP 133/96
--- NOTE | 2023-08-11 03:21 | NUR ---
SLEEPING/RESTING CALMLY MOST OF SHIFT. UP IN CHAIR AT START OF SHIFT. DID NOT ATTEMPT TO GET OOB. REPORTS OF VISUAL HALLUCINATIONS AND AGITATION DURING PREVIOUS SHIFT BUT REMAINED REDIRECTABLE AND CALM THROUGHOUT THAT TIME. AOX1, VSS ON RA, X1-2 ASSIST FOR TRANSFERS. NO ACUTE CHANGES NOTED.
[2023-08-11 07:47] VITALS: BP 136/99
[2023-08-11 15:42] VITALS: BP 121/97
--- NOTE | 2023-08-11 17:42 | NUR ---
SHIFT SUMMARY- PT IS ALERT, PLESANT AND COOPERATIVE. HE IS EATING AND DRINKING WELL. HE IS ON CAMERA. ISOLATION WAS MAINTAINED THIS SHIFT. HIS BED IS IN THE LOW POSITON AND CALL LGIHT IS SUSY ESPINOSA.
[2023-08-11 20:22] VITALS: BP 152/81
[2023-08-12 04:48] VITALS: BP 167/99
--- NOTE | 2023-08-12 05:23 | NUR ---
SHIFT SUMMERY. PT HAD INCONT BREIF AND WAS ABLE TO VOID ABOUT 200. PT HAD BEEN BLADDER SCANED FOR 800ML. WILL ATTEMT TO GET PT TO VOID AGAIN. THEN RECHECK. CALL LIGHT IN REACH BED ROB ON PT IN CAMERA ROOM.
--- NOTE | 2023-08-12 06:41 | NUR ---
PT HAD BLADDER SCAN OF 800 VOIDED 200 AND HAD A INCONT BRIEF BEFORE SCAN. PT VOIDED SM AMOUNT ON COMMODE CHAIR. PT WAS STRIGHT CATHED WITH NO DIFFICULTY WITH 1000 IMEADIATE RETURN CLEAR YELLOW URINE.PT TOLERTATED WELL.
[2023-08-12 07:52] VITALS: BP 174/94
[2023-08-12 10:40] VITALS: BP 133/95
[2023-08-12 12:15] LABS: Source, Urine Foley catheter
[2023-08-12 12:18] LABS: Appearance, Urine Clear (Clear); Bilirubin, Urine Neg (Neg); Blood, Urine 5+ (Neg); Glucose Qualitative, Urine Neg (Neg); Ketones, Urine Neg (Neg); Leukocyte Esterase, Urine 1+ (Neg); Nitrite, Urine Neg (Neg); Protein, Urine Neg (Neg); Specific Gravity, Urine 1.015 (1.003-1.022); Urobilinogen, Urine NORM (Normal)
[2023-08-12 12:24] LABS: Color, Urine Pale Yellow (P-Yellow)
[2023-08-12 12:25] LABS: Bacteria Few /hpf; Hyaline Casts 0-2 /lpf (0-2); Mucus Light (0-Heavy); Squamous Epithelial Cells Rare /hpf (Few)
[2023-08-12 15:14] VITALS: BP 108/90
--- NOTE | 2023-08-12 18:32 | NUR ---
SHIFT SUMMARY- PT IS ALERT, PLESANT AND COOPERATIVE. HE IS EATING AND DRINKING WELL. PREETI WAS PLACED THIS SHIFT FOR ACUTE RETENTION AND IS DRAINING TO GRAVITY. HIS BED IS IN THE LOW POSITON AND CALL LIGHT IS WITIN REACH. ISOLATION WAS MAINTAINED THIS SHIFT. HE WAS UP TO THE CHAIR FOR MUCH OF THIS SHIFT.
[2023-08-12 19:56] VITALS: BP 168/94
--- NOTE | 2023-08-13 05:58 | NUR ---
REPORT RECEIVED A/O X 1, VERY CONFUSED PT YET COOPERATIVE WITH ALL CARE. CANNOT MAKE NEEDS KNOWN SO I CHECK IN EVERY HOUR., BUT PT EXITING BED EVERY 30 MINS AND THEN TRIED TO RUN DOWN THE QUINONES BECAUSE HE THOUGHT THATS WHAT HE WAS SUPPOSED TO DO . PT EVENTUALLY WAS PLACED IN RECLINING CHAIR WHERE HE SEEMED TO BE MORE COMFORTABLE. PT STAYED IN CHAIR AND DID NOT ATTEMPT TO GET UO, PT EVEN SSLEPT IN CHAIR AND IS IN GOOD SPIRITS. WILL CONT MONITORING.
[2023-08-13 07:43] VITALS: BP 148/90
[2023-08-13 17:28] VITALS: BP 151/81
--- NOTE | 2023-08-13 18:30 | NUR ---
SHIFT SUMMARY AT START OF SHIFT PT BECAME CONFUSED, DISORIENTED & UNABLE TO BE RE-DIRECTED OR RE-ORIENTED WITH CONTINUED ATTEMPTS TO GET OUT OF CHAIR. CHAIR ALARM ON. STARTED TO BECOME AGITATED. PT IS A HIGH FALL RISK. MEDICATED WITH ZYPREXA PER EMAR WITH GOOD EFFECT THROUGHOUT SHIFT. NO OBSERVATION CAMERA OR RESTRAINTS REQUIRED. SHIFT WITH PT UNEVENTFUL. RECEIVED ORDERS FROM MD TO DC IV AND TELE. PLAN IS FOR DC TO MEMORY CARE UPON DC.
[2023-08-13 20:12] VITALS: BP 145/95
--- NOTE | 2023-08-13 22:04 | NUR ---
PT RESTING IN BED WATCHING TV. PT AT FIRST REFUSING TO [facility] GOT PT A SNACK TO EAT AND FRESH WATER. PT NOW WILLING TO TAKE HIS MEDS AND FINISH HIS SNACK. CALL LIGHT IN REACH BED ALRM ON AND [facility] NURSE SITTING AT DOOR.
[2023-08-14 02:43] VITALS: BP 190/91
--- NOTE | 2023-08-14 07:39 | NUR ---
SHIFT SUMMERY PT SLEPT WELL ALL NIGHT , BUT AWOKE THIS AM CONFUSED AND TRYING TO GET OUT OF BED WITH ÁLVAREZ STRECHED ACROSS THE BED. PT REDIRECTED DEPENS CHANGED FOR A FRESH ONE. REPOSITIONE. BED ALARM EQUIPMENT OPERATOR WAREHOUSE LIGHT IN REACH.
[2023-08-14 07:51] VITALS: BP 139/92
[2023-08-14 14:42] VITALS: BP 107/97
--- NOTE | 2023-08-14 17:41 | NUR ---
SHIFT SUMMARY D/C ISOLATION PRECAUTIONS THIS SHIFT. PATIENT ON ROOM AIR. INDWELLING ÁLVAREZ IN PLACE FOR ACUTE RETENTION, DOC INCREASED FLOMAX DOSING AND WILL ATTEMPT TO REMOVE ÁLVAREZ TOMORROW. COGNITION VARIABLE THROUGHOUT SHIFT, VERY FORGETFUL. NO IMPULSIVENESS DEMONSTRATED, EASILY REDIRECTABLE. WILL CONTINUE TO MONITOR
[2023-08-14 19:29] VITALS: BP 156/118
--- NOTE | 2023-08-15 01:17 | NUR ---
PATIENT WITH NAUSEA, GIVEN 8MG ZOFRAN ORAL AT 2358, PATIENT VOMITED AT [address] SMITH AT 0030 ORDER RECIEVED FOR 4MG ODT TABLET. PATIENT CURRENTLY SLEEPING WITH NO MORE VOMITING EPISODES.
[2023-08-15 03:02] VITALS: BP 147/94
--- NOTE | 2023-08-15 06:24 | NUR ---
SHIFT SUMMARY PATIENT WITH DIZZINESS AND NAUSEA INTERMITTENT THROUGH SHIFT. 1 EPISODE OF VOMITING AROUND MIDNIGHT. MD AWARE. PATIENT GOT OUT OF BED AND UP TO CHAIR, SITTING CUSTODIAL IN CHAIR AND CATHETHER BAG [address] FE[address] AW[address] ON OTHER SIDE OF BED. SCANT BLOOD TINGE IN URINE, CATHETER CONTINUES TO DRAIN INTO BAG AND WITHIN AN HOUR WAS BACK TO YELLOW URINE. BED ALARM LEFT ON, CALL LIGHT IN REACH. DOOR LEFT OPEN TO BETTER HEAR BED ALARM THAT DOES NOT CONNECT TO VOCERA. PATIENT COOPERATIVE AND REDIRECTABLE. WILL CONTINUE TO MONITOR.
[2023-08-15 08:10] VITALS: BP 126/81
[2023-08-15 15:01] VITALS: BP 123/96
--- NOTE | 2023-08-15 17:19 | NUR ---
SHIFT SUMMARY PATIENT ABLE TO WALK TO SHOWER THIS SHIFT WITH 2 MIN ASSIST AND WALKER, ABLE TO SIT IN CHAIR FOR SOME TIME. COGNITION VARYING THROUGHOUT THE SHIFT. ÁLVAREZ D/C, WAITING FOR VOID. WILL CONTINUE TO MONITOR
--- NOTE | 2023-08-15 18:18 | NUR ---
BLADDER SCAN BLADDER SCANNED AT 1730, 258 WAS HIGHEST AMOUNT. STRAIGHT CATH ORDERS ACTIVE WITH BLADDER PROTOCOL IN PLACE TO CATH OVER 400. WILL CONTINUE TO MONITOR
[2023-08-15 20:38] VITALS: BP 145/105
--- NOTE | 2023-08-16 01:37 | NUR ---
08/16/23 0050, PATIENT BLADDER SCANNED AFTER NOT ABLE TO VOID YET THIS SHIFT. BLADDER SCAN SHOWED 672 ML. 0120 PATIENT STRAIGHT CATHED FOR 800 ML DK YELLOW URINE. 14 FR. STRAIGHT TIP CATH USED, WAS QUITE UNCOMFORTABLE FOR PATIENT GOING DOWN THE URETHRA, LOTS OF LUBRICTION USED. NO DIFFICULTY GETTING PAST THE PROSTATE. PT GIVEN WARM BLANKET. BED ALARM ON, CALL LIGHT IN REACH.
[2023-08-16 04:09] VITALS: BP 131/78
--- NOTE | 2023-08-16 06:51 | NUR ---
Rn summary: Patient is confused but knows about places in [place] and he remembered I was from there. Patient did rest most of the night. As per above note pt was straight cathed for 800 cc urine. No void yet after. Patient was found sitting at bedside. Unsure why he was getting up. Gown replaced and repositioned in bed. Bed alarm on. Denies any needs at this time.
[2023-08-16 07:32] VITALS: BP 136/88
[2023-08-16 16:42] VITALS: BP 144/70
[2023-08-16 16:46] LABS: Source, Urine Foley catheter
[2023-08-16 17:07] LABS: Bilirubin, Urine Neg (Neg); Blood, Urine 2+ (Neg); Color, Urine Yellow (P-Yellow); Glucose Qualitative, Urine Neg (Neg); Ketones, Urine Neg (Neg); Leukocyte Esterase, Urine Neg (Neg); Nitrite, Urine Neg (Neg); Protein, Urine Neg (Neg); Urobilinogen, Urine NORM (Normal)
[2023-08-16 17:22] LABS: Appearance, Urine Hazy (Clear)
[2023-08-16 17:23] LABS: Amorphous Light (0-Heavy); Bacteria Mod /hpf; Hyaline Casts 0-2 /lpf (0-2); Mucus Light (0-Heavy); Squamous Epithelial Cells Rare /hpf (Few)
--- NOTE | 2023-08-16 17:40 | NUR ---
SUMMARY- INDWELLING ÁLVAREZ CATHETER PLACED THIS SHIFT DUE TO RETENTION AFTER VERBAL FROM BURDEN TO PLACE ÁLVAREZ. 900ML URINE RETURN AFTER PLACEMENT. PT AAOX2-3 THIS SHIFT. PT TO EDGE OF BED STANDING AND TO BSC TODAY X2 ASSIST.
[2023-08-16 19:54] VITALS: BP 160/86
--- NOTE | 2023-08-17 03:58 | NUR ---
SHIFT SUMMARY. SHIFT HAS BEEN MOSTLY UNREMARKABLE. PT IS AOX1 BUT REMAINS PLEASANT AND COOPERATIVE WITH CARE. HAS SLEPT THROUGH MOST OF SHIFT AFTER MED PASS AND SHIFT ASSESSMENT. DOES NOT USE CALL LIGHT BUT IS ABLE TO MAKE NEEDS KNOWN WHEN PROMPTED. ÁLVAREZ CATHETER REMAINS IN PLACE AND IS DRAINING WELL. NO COMPLAINTS OF PAIN THIS SHIFT. BED ALARM REMAINS IN PLACE FOR SAFETY. BED LOCKED IN LOWEST POSITION. CALL LIGHT LEFT WITHIN REACH.
[2023-08-17 05:02] VITALS: BP 158/90
[2023-08-17 05:44] LABS: BASOPHILS ABSOLUTE AUTO 0.03 K/mm3 (0.00-0.23); BASOPHILS PERCENT AUTO 0 % (0-2); EOSINOPHILS ABSOLUTE AUTO 0.14 K/mm3 (0.00-0.68); EOSINOPHILS PERCENT AUTO 1 % (0-6); Hematocrit 43.6 % (37.0-53.0); Hemoglobin 14.8 g/dL (13.5-17.5); IMMATURE GRAN ABSOLUTE AUTO 0.15 K/mm3 (0.00-0.10); IMMATURE GRAN PERCENT AUTO 1 % (0-1); LYMPHOCYTES ABSOLUTE AUTO 1.78 K/mm3 (0.84-5.20); LYMPHOCYTES PERCENT AUTO 15 % (21-46); MONOCYTES ABSOLUTE AUTO 0.94 K/mm3 (0.16-1.47); MONOCYTES PERCENT AUTO 8 % (4-13); Mean Corpuscular HGB 27.1 pg (26.0-34.0); Mean Corpuscular HGB Conc 33.9 g/dL (31.5-36.5); Mean Corpuscular Volume 80 fL (80-100); Mean Platelet Volume 10.6 fL (9.1-12.4); NEUTROPHILS ABSOLUTE AUTO 8.53 K/mm3 (1.96-9.15); NEUTROPHILS PERCENT AUTO 74 % (41-73); Platelet Count 242 K/mm3 (150-400); RDW Standard Deviation 40.6 fL (35.1-46.3); Red Blood Cell Count 5.47 M/mm3 (4.30-5.90); White Blood Cell Count 11.57 K/mm3 (4.00-11.30)
[2023-08-17 06:28] LABS: Albumin, Blood 2.6 g/dL (3.4-5.0); Anion Gap 3 mmol/L (6-16); Blood Urea Nitrogen 29 mg/dL (8-24); CO2, Blood 32 mmol/L (21-32); Calcium, Blood 8.8 mg/dL (8.5-10.1); Chloride, Blood 103 mmol/L (98-108); Creatinine, Blood 1.38 mg/dL (0.60-1.20); Glomerular Filtration Rate 52 (60-); Glucose, Blood 109 mg/dL (70-99); Magnesium, Blood 2.2 mg/dL (1.6-2.4); Phosphorus, Blood 2.6 mg/dL (2.5-4.9); Potassium, Blood 3.6 mmol/L (3.5-5.5); Sodium, Blood 138 mmol/L (136-145)
[2023-08-17 08:10] VITALS: BP 133/91
[2023-08-17 15:27] VITALS: BP 140/73
--- NOTE | 2023-08-17 17:36 | NUR ---
SUMMARY- NO ACUTE CHANGES THIS SHIFT. FEW SMALL BLOOD CLOTS NOTED IN PT'S ÁLVAREZ CATHETER LEG BAG THIS SHIFT. ÁLVAREZ DRAINING WELL AND PATENT. CALM AND COOPERATIVE THIS SHIFT.
[2023-08-17 19:24] VITALS: BP 148/85
--- NOTE | 2023-08-18 04:17 | NUR ---
SHIFT SUMMARY. SHIFT HAS BEEN MOSTLY UNREMARKABLE. PT AOX2, PLEASANT, COOPERATIVE WITH CARE. AWAKES FROM SLEEP MORESO CONFUSED BUT IS EASILY REDIRECTED. GOT OOB AND WALKED INTO QUINONES ONCE EARLY IN SHIFT BUT WAS REDIRECTED AND EDUCATION WAS REINFORCED TO NEED TO CALL FOR ASSISTANCE. PT VOICED UNDERSTANDING AND HAS BEEN RESTING COMFORTABLY IN BED SINCE. SATTING WELL ON ROOM AIR. ÁLVAREZ REMAINS IN PLACE WITH LEG BAG ATTACHED. NO PAIN REPORTED THIS SHIFT. CALL LIGHT LEFT WITHIN REACH. BED LOCKED IN LOWEST POSITION.
[2023-08-18 04:29] VITALS: BP 134/74
[2023-08-18 07:27] VITALS: BP 127/83
[2023-08-18 14:33] VITALS: BP 123/84
--- NOTE | 2023-08-18 18:09 | NUR ---
SHIFT SUMMARY PATIENT ALERT AND INTERACTIVE. PATIENT AMBULATING WITH ASSISTANCE IN THE ROOM. PATIENT PARTICIPATED IN SHOWER. PLEASANTLY CONFUSED. AND REPEATEDLY ASKING ABOUT THE "PLAN". PATIENT TO TRANSFER TO A FACILITY WHEN BED AVAILABLE. NO ISSUES WITH SOB, FEVER, OR COUGH.
[2023-08-18 20:32] VITALS: BP 109/76
--- NOTE | 2023-08-19 04:35 | NUR ---
shift summary. shift has been mostly unremarkable. pt was aox2-3 at time of shift assessment. has been pleasant and cooperative with care throughout shift. mentation somewhat fluctuates as pt does occasionally awake confused/forgetful but is easily reoriented/redirected. has slept through most of shift after med pass and shift assessment. sats well on room air. canales catheter remains in place and is draining well. no complaints of pain/tenderness. does not use call light but is able to make needs known. remote monitoring camera remains in place for transfer. pt is steady sba transfer. bed locked in lowest position. call light left within reach.
[2023-08-19 06:11] VITALS: BP 114/60
[2023-08-19 07:29] VITALS: BP 147/84
[2023-08-19 08:20] LABS: BASOPHILS ABSOLUTE AUTO 0.03 K/mm3 (0.00-0.23); BASOPHILS PERCENT AUTO 0 % (0-2); EOSINOPHILS ABSOLUTE AUTO 0.19 K/mm3 (0.00-0.68); EOSINOPHILS PERCENT AUTO 1 % (0-6); Hemoglobin 14.7 g/dL (13.5-17.5); IMMATURE GRAN ABSOLUTE AUTO 0.11 K/mm3 (0.00-0.10); IMMATURE GRAN PERCENT AUTO 1 % (0-1); LYMPHOCYTES ABSOLUTE AUTO 2.33 K/mm3 (0.84-5.20); LYMPHOCYTES PERCENT AUTO 18 % (21-46); MONOCYTES ABSOLUTE AUTO 1.13 K/mm3 (0.16-1.47); MONOCYTES PERCENT AUTO 9 % (4-13); Mean Corpuscular HGB 27.2 pg (26.0-34.0); Mean Corpuscular HGB Conc 33.4 g/dL (31.5-36.5); Mean Corpuscular Volume 82 fL (80-100); Mean Platelet Volume 11.1 fL (9.1-12.4); NEUTROPHILS ABSOLUTE AUTO 9.42 K/mm3 (1.96-9.15); NEUTROPHILS PERCENT AUTO 71 % (41-73); Platelet Count 233 K/mm3 (150-400); RDW Coefficient Variation 14.4 % (11.7-14.2); RDW Standard Deviation 42.3 fL (35.1-46.3); White Blood Cell Count 13.21 K/mm3 (4.00-11.30)
--- NOTE | 2023-08-19 20:24 | NUR ---
SHIFT SUMMARY: ZANE IS A&0X2-3. VSS, NO ACUTE EVENTS THIS SHIFT. PT HAS BEEN PLEASANT AND COOPERATIVE. ÁLVAREZ DRAINING HAYDEE URINE, PT W/SMALL BM THIS SHIFT. HE IS TOLERATING PO INTAKE WELL, UP TO THE CHAIR FOR THE MAJORITY OF THE SHIFT, AND HAS DENIED PAIN. HE IS A ONE-PERSON ASSIST WITH THE GAIT BELT AND FWW. HE IS SITTING UP IN THE BEDSIDE CHAIR WITH THE CALL LIGHT IN REACH. PT HAS USED THE CALL LIGHT APPROPRIATELY THIS SHIFT. REPORT WAS GIVEN TO PUMP SERVICER SUPERVISOR RN.
[2023-08-19 20:54] VITALS: BP 144/83
--- NOTE | 2023-08-20 04:43 | NUR ---
SHIFT SUMMARY ZAEN WAS ALERT AND ORIENTED X3 AT THE START OF SHIFT, HE WAS IN A PLEASANT MOOD AND COOPERATIVE WITH CARE. HE HAD NO ACUTE EVENTS THIS SHIFT, AND SLEPT SOUNDLY ALL NIGHT AFTER EVENING MEDS. CATHETER DRAINING DARK HAYDEE URINE. PT IS RESTING IN BED AT A LOW POSITION WITH THE CALL LIGHT IN REACH. NO PATIENT COMPLAINTS.
[2023-08-20 05:23] VITALS: BP 119/78
[2023-08-20 07:42] VITALS: BP 120/88
[2023-08-20] MEDS ORDERED: FAMO20 PO (11:55)
[2023-08-20] MEDS ORDERED: OLAN10 PO (11:55)
[2023-08-20] MEDS ORDERED: Seroquel Xr50 MG PO (11:56)
[2023-08-20] MEDS ORDERED: QUET200 PO (11:56)
--- NOTE | 2023-08-20 13:44 | NUR ---
SHIFT/DISCHARGE SUMMARY: PATIENT IS AWAKE, ALERT AND ORIENTED TO SELF, PLACE AND YEAR. PATIENT IS CALM, PLEASANT AND COOPERATIVE c CARE. DENIES CP/PRESSURE, N/V, SOB, AND DIZZINESS. PATIENT AMBULATES c 1 ASSIST, FWW AND GAITBELT. PATIENT HAS CHRONIC ÁLVAREZ FOR RETENTION, ÁLVAREZ PATENT, DRAINING YELLOW URINE TO GRAVITY. PATIENT IS EATING AND DRINKING WELL. PATIENT RECEIVED SCHEDULED MEDS PER EMAR. NO IV ACCESS PER ORDER. PATIENT DISCHARGE TO [facility] THROUGH [facility]. DISCHARGE PACKET WAS FAXED BY CHARAN BAERHYDRAULIC STRAINER OPERATORFRUIT GRADING SUPERVISOR TO [employer]. DISCHARGE PACKET GIVEN TO PATIENT. ALL PATIENT PERSONAL BELONGINGS WERE SENT c THE PATIENT. PATIENT LEFT THE ROOM AT AROUND 1337 VIA WHEELCHAIR THROUGH [employer].
== END 2023-08-20 13:36 | DRG 177 ==
LOC: ER 17:36 → ERHOLD 17:37 → MEDS 08-03 00:30 → ERHOLD 08-03 00:30 → MEDS 08-03 10:46 → ENPENDDIS 08-20 10:30 → MEDS 08-20 13:36
PROVIDERS: Family Medicine; Internal Medicine; Student in an Organized Health Care Education/Training Program; ADMIT Internal Medicine
PROC: 5A09457 Assistance with Respiratory Ventilation, 24-96 Consecutive Hours, Continuous Positive Airway Pressure (ICD-10-PCS; principal; 2023-08-03)
PROC: XW033E5 Introduction of Remdesivir Anti-infective into Peripheral Vein, Percutaneous Approach, New Technology Group 5 (ICD-10-PCS; 2023-08-03)
PROC: 3E0333Z Introduction of Anti-inflammatory into Peripheral Vein, Percutaneous Approach (ICD-10-PCS; 2023-08-03)
PROC: 8E0ZXY6 Isolation (ICD-10-PCS; 2023-08-03)
DX: U07.1 COVID-19 (principal); J96.01 Acute respiratory failure with hypoxia; J96.02 Acute respiratory failure with hypercapnia; E87.20 Acidosis, unspecified; G93.49 Other encephalopathy; J44.9 Chronic obstructive pulmonary disease, unspecified; G47.33 Obstructive sleep apnea (adult) (pediatric); E03.9 Hypothyroidism, unspecified; I10 Essential (primary) hypertension; W18.30XA Fall on same level, unspecified, initial encounter; R33.9 Retention of urine, unspecified; G89.29 Other chronic pain; F03.90 Unspecified dementia, unspecified severity, without behavioral disturbance, psychotic disturbance, mood disturbance, and anxiety; Z88.8 Allergy status to other drugs, medicaments and biological substances; Z79.899 Other long term (current) drug therapy; Z79.82 Long term (current) use of aspirin; Z88.1 Allergy status to other antibiotic agents
CPT/HCPCS: 0241U; 36415; 70450; 80053; 80069; 81001; 82140; 82803; 83605; 83735; 83880; 85025; 85610; 85730; 87040; 87086; 93005; 93010; 94640; 94664; 94760; 94762; 96365; 96366; 96367; 96372-59; 96375; 97110; 97116; 97129; 97162; 97165; 97530; 97535; 99285-25; A9270; J0248; J0360; J0696; J1100; J1650; J2930; J7030; J7050; J7512